=== PATIENT | male | born 1990 | race Two or more races ===

== ENCOUNTER 2019-06-27 00:33 | Emergency (ER) | payer SELFPAY ==
[~2019-06-27] VITALS: Ht 167.6 cm; Wt 80.0 kg
[2019-06-27] MEDS ORDERED: INSULIN (00:40)
--- NOTE | 2019-06-27 01:34 | NUR ---
PT RESTING ON GFURNEY, PROVIDED PT WITH WARM BLANKET, C/O RIGHT LEG PAIN, MONITORS APPLIED, SIDERAILS UP X2, CALL LIGHT WITHIN REACH. WILL UPDATE ERP REGARDING PT'S REQUESTING PAIN MEDICATION, AWAITING XRAY RESULTS
[2019-06-27] MEDS ORDERED: HYDROmorphone 1 MG/ML, 1ML INJ IM ONE (02:00)
[2019-06-27] MEDS ORDERED: HYDROmorphone 1 MG/ML, 1ML VIAL ONE (02:11)
--- NOTE | 2019-06-27 02:27 | NUR ---
PT MEDICATED PER OCT. AWAITING CT RESULT
--- NOTE | 2019-06-27 02:32 | NUR ---
GEOPHYSICAL MANAGER AT [facility] FOR SPLINT APPLICATION
[2019-06-27 03:59] VITALS: BP 110/65
--- NOTE | 2019-06-27 04:03 | NUR ---
PROVIDED/INSTRUCTED PT WITH CRUTCH USE, PT ABLE TO AMBULATE USING CRUTCHES WITHOUT DIFFICULTY
== END 2019-06-27 04:12 | disposition home or self-care (01) ==
LOC: ED 01:38
DX: S82.121A Displaced fracture of lateral condyle of right tibia, initial encounter for closed fracture (principal); E11.9 Type 2 diabetes mellitus without complications; F17.200 Nicotine dependence, unspecified, uncomplicated; W19.XXXA Unspecified fall, initial encounter; Y93.89 Activity, other specified; Y92.009 Unspecified place in unspecified non-institutional (private) residence as the place of occurrence of the external cause; Y99.8 Other external cause status
CPT/HCPCS: 29505; 73560; 73590; 73700; 82962; 96372; 99284; J1170

== ENCOUNTER → 2021-03-29 | Outpatient (CLI) | payer SELFPAY ==
[~2021-03-29] MED LIST: INSULIN
== END | disposition home or self-care (01) ==
LOC: CFH 13:42
PROVIDERS: ATTEND Physician Assistant
DX: R59.0 Localized enlarged lymph nodes (principal); R60.0 Localized edema; E13.621 Other specified diabetes mellitus with foot ulcer; L97.519 Non-pressure chronic ulcer of other part of right foot with unspecified severity; J06.9 Acute upper respiratory infection, unspecified; M79.669 Pain in unspecified lower leg